=== PATIENT | male | born 1985 | race Caucasian/White ===

== ENCOUNTER 2018-09-21 13:40 | Emergency (ER) | payer BC, OTHER ==
--- NOTE | 2018-09-21 14:42 | EDM.PDOC ---
ED HPI GENERAL MEDICAL PROBLEM - General Chief Complaint: ENT Problem Stated Complaint: EAR Time Seen by Provider: 09/21/18 14:35 Source of Information: Reports: Patient History Limitations: Reports: No Limitations - History of Present Illness INITIAL COMMENTS - FREE TEXT/NARRATIVE: HISTORY AND PHYSICAL: History of present illness: Patient is a 33-year-old male who presents to the emergency room with complaints of left ear fullness. He states once a year he does gets large amount of wax which usually needs cleaned out. He comes today requesting evaluation and hopes having the ear irrigated. He denies any fever, chills, chest pain, shortness of breath or cough. Denies any GI or symptoms. He has been eating and drinking appropriately. Review of systems: As per history of present illness and below otherwise all systems reviewed and negative. Past medical history: As per history of present illness and as reviewed below otherwise noncontributory. Surgical history: As per history of present illness and as reviewed below otherwise noncontributory. Social history: See social history for further information Family history: As per history of present illness and as reviewed below otherwise noncontributory. Physical exam: General: well-developed and well-nourished 33-year-old male. Alert and oriented. Nontoxic appearing and in no acute distress. HEENT: Atraumatic, normocephalic, pupils equal and reactive bilaterally, negative for conjunctival pallor or scleral icterus, mucous membranes moist. Left TM is erythematous with white thick fluid noted behind the TM with dull light reflex, no bulging. Right TM normal.throat clear, neck supple, nontender, trachea midline. No drooling or trismus noted. No meningeal signs. No hot potato voice noted. Lungs: Clear to auscultation, breath sounds equal bilaterally, chest nontender. Heart: S1S2, regular rate and rhythm without overt murmur Abdomen: Soft, nondistended, nontender. Negative for masses or hepatosplenomegaly. Negative for costovertebral tenderness. Pelvis: Stable nontender. Genitourinary: Deferred. Rectal: Deferred. Skin: Intact, warm, dry. No lesions or rashes noted. Extremities: Atraumatic, negative for cords or calf pain. Neurovascular unremarkable. Neuro: Awake, alert, oriented. Cranial nerves II through XII unremarkable. Cerebellum unremarkable. Motor and sensory unremarkable throughout. Exam nonfocal. Notes: Will treat, supportive care measures were reviewed and discussed. Voices understanding and is agreeable to plan of care. Denies any further questions or concerns at this time. Diagnostics: None Therapeutics: None Prescription: Augmentin Impression: Otitis media with effusion, left Plan: 1. Take the antibiotic as prescribed. 2. May use [id number]-[id number] decongestants for the sensation of feeling full in the ear 3. Follow-up with ear nose and throat are primary care. Return to the ED as needed and as discussed. Definitive disposition and diagnosis as appropriate pending reevaluation and review of above. Left Ear Pain Score (Numeric/FACES): 4 - Related Data Allergies Allergy/AdvReac Type Severity Reaction Status Date / Time animal dander Allergy Airway Verified 09/21/18 14:13 Tightness cat dander Allergy Shortness Verified 09/21/18 14:13 of Breath Home Meds: Home Meds . [No Known Home Meds] 07/24/16 [History] Past Medical History - Past Health History Medical/Surgical History: Denies Medical/Surgical History HEENT History: Reports: None Cardiovascular History: Reports: Other (See Below) Other Cardiovascular History: myocarditis Respiratory History: Reports: Asthma Gastrointestinal History: Reports: None Genitourinary History: Reports: None Musculoskeletal History: Reports: None Neurological History: Reports: None Psychiatric History: Reports: None Endocrine/Metabolic History: Reports: None Hematologic History: Reports: None Immunologic History: Reports: None Oncologic (Cancer) History: Reports: None Dermatologic History: Reports: None - Infectious Disease History Infectious Disease History: Reports: None - Past Surgical History HEENT Surgical History: Reports: None Cardiovascular Surgical History: Reports: Other (See Below) Social & Family History - Family History Family Medical History: Noncontributory - Tobacco Use Smoking Status *Q: Current Every Day Smoker Years of Tobacco use: 10 Packs/Tins Daily: 0.1 - Caffeine Use Caffeine Use: Reports: Coffee, Energy Drinks - Recreational Drug Use Recreational Drug Use: No ED ROS ENT - Review of Systems Review Of Systems: ROS reveals no pertinent complaints other than HPI. ED EXAM, ENT - Physical Exam Exam: See Below (See dictation) Course - Vital Signs Last Recorded V/S: Last Vital Signs Temp 97.8 F 09/21/18 14:11 Pulse 78 09/21/18 14:11 Resp 16 09/21/18 14:11 BP 133/77 09/21/18 14:11 Pulse Ox 94 L 09/21/18 14:11 Departure - Departure Time of Disposition: 14:42 Disposition: Home, Self-Care 01 Clinical Impression: Otitis media Qualifiers: Otitis media type: suppurative Chronicity: acute Laterality: left Recurrence: non-recurrent Spontaneous tympanic membrane rupture: without spontaneous rupture Qualified Code(s): H66.002 - Acute suppurative otitis media without spontaneous rupture of ear drum, left ear - Discharge Information Instructions: Otitis Media, Adult Referrals: PCP,Unknown [Primary Care Provider] - Forms: ED Department Discharge Additional Instructions: The following information is given to patients seen in the emergency department who are being discharged to home. This information is to outline your options for follow-up care. We provide all patients seen in our emergency department with a follow-up referral. The need for follow-up, as well as the timing and circumstances, are variable depending upon the specifics of your emergency department visit. If you don't have a primary care physician on staff, we will provide you with a referral. We always advise you to contact your personal physician following an emergency department visit to inform them of the circumstance of the visit and for follow-up with them and/or the need for any referrals to a consulting specialist. The emergency department will also refer you to a specialist when appropriate. This referral assures that you have the opportunity for follow-up care with a specialist. All of these measure are taken in an effort to provide you with optimal care, which includes your follow-up. Under all circumstances we always encourage you to contact your private physician who remains a resource for coordinating your care. When calling for follow-up care, please make the office aware that this follow-up is from your recent emergency room visit. If for any reason you are refused follow-up, please contact the [facility] at and asked to speak to the emergency department charge nurse. [facility] [address] [place] [id number] [address] [facility] [address] [place] [address] 1. Take the antibiotic as prescribed. 2. May use hlzg-[id number] decongestants for the sensation of feeling full in the ear 3. Follow-up with ear nose and throat are primary care. Return to the ED as needed and as discussed.
[2018-09-21 15:24] VITALS: BP 144/92
== END 2018-09-21 15:24 | disposition home or self-care (01) ==
LOC: MW.ED 13:40
DX: H66.002 Acute suppurative otitis media without spontaneous rupture of ear drum, left ear (principal); F17.210 Nicotine dependence, cigarettes, uncomplicated
CPT/HCPCS: 99282

== ENCOUNTER 2018-10-03 12:57 | Emergency (ER) | payer BC ==
[2018-10-03 13:18] VITALS: BP 106/70
--- NOTE | 2018-10-03 13:40 | EDM.PDOC ---
ED HPI GENERAL MEDICAL PROBLEM - General Chief Complaint: ENT Problem Stated Complaint: EAR ACHE Time Seen by Provider: 10/03/18 13:00 Source of Information: Reports: Patient History Limitations: Reports: No Limitations - History of Present Illness INITIAL COMMENTS - FREE TEXT/NARRATIVE: History of present illness: []Patient gets ear infections see her this time year. He patient completed antibiotic and still has pain. He is unable to follow-up with any ENT or freezing but he is booked out past the summer. Review of systems: As per history of present illness and below otherwise all systems reviewed and negative. Past medical history: As per history of present illness and as reviewed below otherwise noncontributory. Surgical history: As per history of present illness and as reviewed below otherwise noncontributory. Social history: No reported history of drug or alcohol abuse. Family history: As per history of present illness and as reviewed below otherwise noncontributory. Physical exam: General: Well developed, well nourished in NAD HEENT: Atraumatic, normocephalic, pupils reactive, negative for conjunctival pallor or scleral icterus, mucous membranes moist, throat clear, neck supple, nontender, trachea midline., Cellular debris in left EAC unable to see TM clearly tubal perforation Lungs: Clear to auscultation, breath sounds equal bilaterally, chest nontender. Heart: S1S2, regular, negative for clicks, rubs, or JVD. Abdomen: NABS, Soft, nondistended, nontender. Negative for masses or hepatosplenomegaly. Negative for costovertebral tenderness. Pelvis: Stable nontender. Genitourinary: Deferred. Rectal: Deferred. Extremities: Atraumatic, negative for cords or calf pain. Neurovascular unremarkable. Neuro: Awake, alert, oriented. Cranial nerves II through XII unremarkable. Cerebellum unremarkable. Motor and sensory unremarkable throughout. Exam nonfocal. Skin:warm and dry Diagnostics: None Therapeutics: None ED Course: Stable Impression: otitis media, otitis externa Prescriptions: Cortisporin otic, Bactrim Plan: Take meds as directed, follow up with your primary care physician, return to ER if symptoms worsen or change. Definitive disposition and diagnosis as appropriate pending reevaluation and review of above. Left Ear Pain Score (Numeric/FACES): 5 - Related Data Allergies Allergy/AdvReac Type Severity Reaction Status Date / Time animal dander Allergy Airway Verified 10/03/18 13:15 Tightness cat dander Allergy Shortness Verified 10/03/18 13:15 of Breath Home Meds: Home Meds Hydrocort/Neomycin/Polymyxin B [Jjowpxrj-Zudvdgitw-WE Otic Susp] 10 ml .XX TID 10 Days #1 bottle 10/03/18 [Rx] Sulfamethoxazole/Trimethoprim [Bactrim Ds Tablet] 1 each PO BID #20 tablet 10/03 [Rx] Past Medical History - Past Health History Medical/Surgical History: Denies Medical/Surgical History HEENT History: Reports: None Cardiovascular History: Reports: Other (See Below) Other Cardiovascular History: myocarditis Respiratory History: Reports: Asthma Gastrointestinal History: Reports: None Genitourinary History: Reports: None Musculoskeletal History: Reports: None Neurological History: Reports: None Psychiatric History: Reports: None Endocrine/Metabolic History: Reports: None Hematologic History: Reports: None Immunologic History: Reports: None Oncologic (Cancer) History: Reports: None Dermatologic History: Reports: None - Infectious Disease History Infectious Disease History: Reports: None - Past Surgical History HEENT Surgical History: Reports: None Cardiovascular Surgical History: Reports: Other (See Below) Social & Family History - Family History Family Medical History: Noncontributory - Tobacco Use Smoking Status *Q: Never Smoker - Caffeine Use Caffeine Use: Reports: None - Recreational Drug Use Recreational Drug Use: No ED ROS ENT - Review of Systems Review Of Systems: ROS reveals no pertinent complaints other than HPI. ED EXAM, ENT - Physical Exam Exam: See Below Course - Vital Signs Last Recorded V/S: Last Vital Signs Temp 96.7 F 10/03/18 13:15 Pulse 70 10/03/18 13:15 Resp 15 10/03/18 13:15 BP 106/70 10/03/18 13:15 Pulse Ox 98 10/03/18 13:15 Departure - Departure Time of Disposition: 13:43 Disposition: Home, Self-Care 01 Condition: Good Clinical Impression: Otitis external Otitis media Qualifiers: Otitis media type: suppurative Chronicity: acute Laterality: left Recurrence: non-recurrent Spontaneous tympanic membrane rupture: without spontaneous rupture Qualified Code(s): H66.002 - Acute suppurative otitis media without spontaneous rupture of ear drum, left ear - Discharge Information *PRESCRIPTION DRUG MONITORING PROGRAM REVIEWED*: No *COPY OF PRESCRIPTION DRUG MONITORING REPORT IN PATIENT FANY: No Prescriptions: Hydrocort/Neomycin/Polymyxin B [Zcamdqyy-Qkanqviyo-OH Otic Susp] 10 ml .XX TID 10 Days #1 bottle Sulfamethoxazole/Trimethoprim [Bactrim Ds Tablet] 1 each PO BID #20 tablet Referrals: PCP,None [Primary Care Provider] - Forms: ED Department Discharge
== END 2018-10-03 13:59 | disposition home or self-care (01) ==
LOC: MW.ED 12:57
DX: H66.002 Acute suppurative otitis media without spontaneous rupture of ear drum, left ear (principal); H66.92 Otitis media, unspecified, left ear; Z91.048 Other nonmedicinal substance allergy status
CPT/HCPCS: 99282

== ENCOUNTER 2018-10-11 20:04 | Emergency (ER) | payer BC ==
[2018-10-11 20:29] VITALS: BP 144/87
--- NOTE | 2018-10-11 20:30 | EDM.PDOC ---
ED HPI GENERAL MEDICAL PROBLEM - General Chief Complaint: General Stated Complaint: PT HAS STOMACH PAIN Time Seen by Provider: 10/11/18 20:17 Source of Information: Reports: Patient History Limitations: Reports: No Limitations - History of Present Illness INITIAL COMMENTS - FREE TEXT/NARRATIVE: HISTORY AND PHYSICAL: History of present illness: Patient is a 33-year-old male presents to the ED today with concern of left- sided rib pain after a baseball game yesterday. Patient states as he was swinging the bat and felt a pop in his left side. Patient states since then he said 9 out of 10 rib pain. Patient states he's been taking ibuprofen and Tylenol [id number] with minimal relief of symptoms. Patient denies any prior injury to this area. Patient denies fever, chills, chest pain, shortness of breath, or cough. Denies headache, neck stiff ness, change in vision, syncope, or near syncope. Denies nausea, vomiting, abdominal pain, diarrhea, constipation, or dysuria. Has not noted any blood in urine or stool. Patient has been eating and drinking appropriately. Review of systems: As per history of present illness and below otherwise all systems reviewed and negative. Past medical history: As per history of present illness and as reviewed below otherwise noncontributory. Surgical history: As per history of present illness and as reviewed below otherwise noncontributory. Social history: See social history for further information Family history: As per history of present illness and as reviewed below otherwise noncontributory. Physical exam: General: Patient is alert, oriented, and in no acute distress. Patient sitting comfortably on exam table. HEENT: Atraumatic, normocephalic, pupils equal and reactive bilaterally, negative for conjunctival pallor or scleral icterus, mucous membranes moist, TMs normal bilaterally, throat clear, neck supple, nontender, trachea midline. No drooling or trismus noted. No meningeal signs. No hot potato voice noted. Lungs: Clear to auscultation, breath sounds equal bilaterally, chest nontender. Heart: S1S2, regular rate and rhythm without overt murmur Abdomen: Soft, nondistended, nontender. Negative for masses or hepatosplenomegaly. Negative for costovertebral tenderness. Pelvis: Stable nontender. Genitourinary: Deferred. Rectal: Deferred. Skin: Intact, warm, dry. No lesions or rashes noted. Extremities/musculoskeletal: Negative for cords or calf pain. Neurovascular unremarkable. Patient does have pain to palpation of ribs 9 and 10 on the left side. No obvious deformities, step-offs, or crepitus. Neuro: Awake, alert, oriented. Cranial nerves II through XII unremarkable. Cerebellum unremarkable. Motor and sensory unremarkable throughout. Exam nonfocal. Notes: Discussed the importance for follow-up with the primary care provider. Voices understanding and is agreeable to plan of care. Denies any further questions or concerns at this time. Diagnostics: Left rib x-ray with chest x-ray, UA Therapeutics: Toradol, Norflex Prescription: Diclofenac, Flexeril Impression: Musculoskeletal pain Plan: 1. Take medication as prescribed. You can also alternate ibuprofen and Tylenol as directed for pain and discomfort. 2. Follow-up with your primary care provider as discussed. 3. Return to the ED as needed and as discussed. Definitive disposition and diagnosis as appropriate pending reevaluation and review of above. left rib Pain Score (Numeric/FACES): 5 - Related Data Allergies Allergy/AdvReac Type Severity Reaction Status Date / Time animal dander Allergy Airway Verified 10/11/18 20:23 Tightness cat dander Allergy Shortness Verified 10/11/18 20:23 of Breath Home Meds: Home Meds . [No Known Home Meds] 10/11/18 [History] Past Medical History - Past Health History Medical/Surgical History: Denies Medical/Surgical History HEENT History: Reports: None Cardiovascular History: Reports: Other (See Below) Other Cardiovascular History: myocarditis Respiratory History: Reports: Asthma Gastrointestinal History: Reports: None Genitourinary History: Reports: None Musculoskeletal History: Reports: None Neurological History: Reports: None Psychiatric History: Reports: None Endocrine/Metabolic History: Reports: None Hematologic History: Reports: None Immunologic History: Reports: None Oncologic (Cancer) History: Reports: None Dermatologic History: Reports: None - Infectious Disease History Infectious Disease History: Reports: None - Past Surgical History HEENT Surgical History: Reports: None Cardiovascular Surgical History: Reports: Other (See Below) Social & Family History - Family History Family Medical History: Noncontributory - Caffeine Use Caffeine Use: Reports: None ED ROS GENERAL - Review of Systems Review Of Systems: ROS reveals no pertinent complaints other than HPI. ED EXAM, GENERAL - Physical Exam Exam: See Below (See dictation) Course - Vital Signs Last Recorded V/S: Last Vital Signs Temp 35.8 C 10/11/18 20:24 Pulse 76 10/11/18 20:24 Resp 18 10/11/18 20:24 BP 144/87 H 10/11/18 20:24 Pulse Ox 98 10/11/18 20:24 - Orders/Labs/Meds Labs: Laboratory Tests 10/11/18 Range/Units 20:59 Urine Color YELLOW Urine Appearance CLEAR Urine pH 6.0 (5.0-8.0) Ur Specific [place] 1.020 (1.001-1.035) Urine Protein NEGATIVE (NEGATIVE) mg/dL Urine Glucose (UA) NEGATIVE (NEGATIVE) mg/dL Urine Ketones NEGATIVE (NEGATIVE) mg/dL Urine Occult Blood NEGATIVE (NEGATIVE) Urine Nitrite NEGATIVE (NEGATIVE) Urine Bilirubin NEGATIVE (NEGATIVE) Urine Urobilinogen 0.2 (<2.0) EU/dL Ur Leukocyte Esterase NEGATIVE (NEGATIVE) Meds: Medications Discontinued Medications Generic Name Dose Route Start Last Admin Trade Name Kerline PRN Reason Stop Dose Admin Ketorolac Tromethamine 60 mg 10/11/18 20:42 10/11/18 20:51 Toradol IM 10/11/18 20:43 60 mg ONETIME ONE Administration Orphenadrine Citrate 60 mg 10/11/18 20:42 10/11/18 20:51 Norflex IM 10/11/18 20:43 60 mg NOW STA Administration Departure - Departure Time of Disposition: 21:38 Disposition: Home, Self-Care 01 Clinical Impression: Musculoskeletal pain - Discharge Information Referrals: Yolanda Majano NP [Primary Care Provider] - Forms: ED Department Discharge Additional Instructions: The following information is given to patients seen in the emergency department who are being discharged to home. This information is to outline your options for follow-up care. We provide all patients seen in our emergency department with a follow-up referral. The need for follow-up, as well as the timing and circumstances, are variable depending upon the specifics of your emergency department visit. If you don't have a primary care physician on staff, we will provide you with a referral. We always advise you to contact your personal physician following an emergency department visit to inform them of the circumstance of the visit and for follow-up with them and/or the need for any referrals to a consulting specialist. The emergency department will also refer you to a specialist when appropriate. This referral assures that you have the opportunity for follow-up care with a specialist. All of these measure are taken in an effort to provide you with optimal care, which includes your follow-up. Under all circumstances we always encourage you to contact your private physician who remains a resource for coordinating your care. When calling for follow-up care, please make the office aware that this follow-up is from your recent emergency room visit. If for any reason you are refused follow-up, please contact the [facility] Emergency Department at and asked to speak to the emergency department charge nurse. [facility] [address] [place] [address] [id number] [address] [address] 1. Take medication as prescribed. You can also alternate ibuprofen and Tylenol as directed for pain and discomfort. 2. Follow-up with your primary care provider as discussed. 3. Return to the ED as needed and as discussed.
[2018-10-11] MEDS ORDERED: Ketorolac 60 MG/2 ML SDV IM ONE (20:42)
--- NOTE | 2018-10-11 21:34 | CR ---
INDICATION: Pain. TECHNIQUE: PA chest and 2 left ribs. FINDINGS: The lungs are clear. There is no evidence of pulmonary contusion, pneumothorax or pleural effusion. The heart and pulmonary vessels are of normal size. Oblique detail views of the ribs demonstrate no evidence of fracture or intrinsic bone lesion. There is no evidence of pleural hematoma. IMPRESSION: Negative chest and left ribs. Dictated by Jose D Nguyen MD @ Oct 11 2018 9:31PM Signed by Dr. Jose D Nguyen @ Oct 11 2018 9:33PM
== END 2018-10-11 21:50 | disposition home or self-care (01) ==
LOC: MW.ED 20:04
DX: R07.81 Pleurodynia (principal); Z91.048 Other nonmedicinal substance allergy status
CPT/HCPCS: 71101; 81003; 96372; 99283; J1885; J2360

== ENCOUNTER 2019-12-31 05:25 | Emergency (ER) | payer BC ==
--- NOTE | 2019-12-31 05:40 | EDM.PDOC ---
<Chsa Chavez - Last Filed: 12/31/19 08:54> ED HPI GENERAL MEDICAL PROBLEM - General Chief Complaint: General Stated Complaint: SEVERE NECK PAIN Time Seen by Provider: 12/31/19 05:39 - Related Data Allergies Allergy/AdvReac Type Severity Reaction Status Date / Time animal dander Allergy Airway Verified 12/31/19 05:33 Tightness cat dander Allergy Shortness Verified 12/31/19 05:33 of Breath Home Meds: Home Meds Cyclobenzaprine HCl [Cyclobenzaprine HCl ER] 30 mg PO TID #9 cap.er.24h 12/31/19 [Rx] ED ROS GENERAL - Review of Systems Review Of Systems: Comprehensive ROS is negative, except as noted in HPI. Course - Re-Assessments/Exams Free Text/Narrative Re-Assessment/Exam: 12/31/19 08:55 After IV toradol, he feels much improved and is stable for discharge. I performed a repeat examination and the patient has not demonstrated any new abnormal findings. Patient exhibits normal vital signs. I advised the patient to return to the ER for reevaluation if symptoms worsened, and to follow up with their PCP within 2-3 days. MEDICAL DECISION MAKING: I reviewed the patients past medical records, lab and radiographic findings. I discussed the case with the patient. My differential diagnosis included: dissection, neck strain. CT angios neck did not reveal any signs of dissection or aneurysm or hematoma. His symptoms improved after IV Toradol, I believe he is stable for discharge at this time. Departure - Departure Time of Disposition: 08:58 Disposition: Home, Self-Care 01 Condition: Good Clinical Impression: Neck strain - Discharge Information *PRESCRIPTION DRUG MONITORING PROGRAM REVIEWED*: Not Applicable *COPY OF PRESCRIPTION DRUG MONITORING REPORT IN PATIENT FANY: Not Applicable Prescriptions: Cyclobenzaprine HCl [Cyclobenzaprine HCl ER] 30 mg PO TID #9 cap.er.24h Instructions: Muscle Strain Referrals: Yolanda Majano NP [Primary Care Provider] - 3 Days Forms: ED Department Discharge Additional Instructions: The following information is given to patients seen in the emergency department who are being discharged to home. This information is to outline your options for follow-up care. We provide all patients seen in our emergency department with a follow-up referral. The need for follow-up, as well as the timing and circumstances, are variable depending upon the specifics of your emergency department visit. If you don't have a primary care physician on staff, we will provide you with a referral. We always advise you to contact your personal physician following an emergency department visit to inform them of the circumstance of the visit and for follow-up with them and/or the need for any referrals to a consulting specialist. The emergency department will also refer you to a specialist when appropriate. This referral assures that you have the opportunity for follow-up care with a specialist. All of these measure are taken in an effort to provide you with optimal care, which includes your follow-up. Under all circumstances we always encourage you to contact your private physician who remains a resource for coordinating your care. When calling for follow-up care, please make the office aware that this follow-up is from your recent emergency room visit. If for any reason you are refused follow-up, please contact the [facility] Emergency Department at and asked to speak to the emergency department charge nurse. If you do not have a primary care doctor, please follow up with the clinics below within 3-5 days. [facility] - Primary Care [address] [place] [id number] [place] [address] <Jose Bauman - Last Filed: 12/31/19 19:15> ED HPI GENERAL MEDICAL PROBLEM - General Source of Information: Reports: Patient History Limitations: Reports: No Limitations - History of Present Illness INITIAL COMMENTS - FREE TEXT/NARRATIVE: 34-year-old male past medical history of asthma presenting with neck pain. Patient states that 3 days ago, he woke up with severe pain to the left posterolateral neck. There is no history of preceding trauma, heavy lifting, strenuous exercise, etc. No history of preceding chiropractic manipulation. Since the onset of the pain, he went to chiropractic clinic twice to see if manipulation would improve the pain but it has not so far. Denies any visual disturbance, facial or extremity numbness or weakness, dysarthria, dysphasia, vision changes, facial droop, gait instability, or any other concerning neurologic symptoms. No history of prior severe neck pain like this. No self treatment prior to arrival. neck Pain Score (Numeric/FACES): 10 Past Medical History - Past Health History Medical/Surgical History: Denies Medical/Surgical History HEENT History: Reports: None Other HEENT History: wears glasses Cardiovascular History: Reports: Other (See Below) Other Cardiovascular History: myocarditis Respiratory History: Reports: Asthma Gastrointestinal History: Reports: None Genitourinary History: Reports: None Musculoskeletal History: Reports: None Neurological History: Reports: None Psychiatric History: Reports: None Endocrine/Metabolic History: Reports: None Hematologic History: Reports: None Immunologic History: Reports: None Oncologic (Cancer) History: Reports: None Dermatologic History: Reports: None - Infectious Disease History Infectious Disease History: Reports: Chicken Pox - Past Surgical History HEENT Surgical History: Reports: None Cardiovascular Surgical History: Reports: Other (See Below) Social & Family History - Family History Family Medical History: Noncontributory - Tobacco Use Smoking Status *Q: Former Smoker Used Tobacco, but Quit: Yes Month/Year Tobacco Last Used: 2019 - Caffeine Use Caffeine Use: Reports: Coffee - Recreational Drug Use Recreational Drug Use: No ED ROS GENERAL - Review of Systems Review Of Systems: See Below Constitutional: Denies: Fever HEENT: Denies: Vertigo, Vision Change Respiratory: Denies: Shortness of Breath Cardiovascular: Denies: Chest Pain Endocrine: Reports: No Symptoms GI/Abdominal: Denies: Nausea, Vomiting : Reports: No Symptoms Musculoskeletal: Reports: Neck Pain Skin: Denies: Rash, Lesions Neurological: Denies: Dizziness, Headache, Numbness, Paresthesia, Pre-Existing Deficit, Tingling, Trouble Speaking, Difficulty Walking, Weakness, Change in Speech, Gait Disturbance Psychiatric: Reports: No Symptoms Hematologic/Lymphatic: Reports: No Symptoms Immunologic: Reports: No Symptoms ED EXAM, GENERAL - Physical Exam Exam: See Below Free Text/Narrative:: Vital signs reviewed. Nursing notes reviewed. Constitutional: Awake, alert, non-distressed. Head: Normocephalic, atraumatic. Neck: Moderate tenderness to palpation to the left posterolateral neck, no midline tenderness, moving the neck limited due to pain Eyes: EOMI, conjunctiva normal, no discharge, no scleral icterus. Pupils 3 mm bilaterally Ears, Nose, Throat: External ears and nose normal, moist oral mucosa. Cardiovascular: 2+ radial pulse, capillary refill less than 2 seconds. Pulmonary: normal work of breathing, no accessory muscle use. Abdomen/GI: Nondistended Musculoskeletal: No deformities. Integumentary: Appropriate color for ethnicity, warm, dry, no pallor or jaundice, no rash. Neurologic: Awake, alert, and oriented x3. Cranial nerves II through XII intact. No facial droop or dysarthria. Neck range of motion limited due to pain. No pronator drift. Normal [id number] and [id number]-[id number]. No dysdiadochokinesia. 5/5 strength in all extremities. Sensation intact to light touch x4. Normal gait. Normal visual quintana, no field cuts. Able to sit, stand, and ambulate without assistance. Psychiatric: Appropriate mood and affect, normal thought process. Course - Vital Signs Text/Narrative:: Patient hemodynamically stable, afebrile, well-appearing, looks nontoxic. Differential diagnosis includes but is not limited to: Strain/sprain, muscle spasm, cervical arterial dissection or injury, cervical spine injury, trapezius muscle spasm, epidural abscess, cervical disc herniation, etc. Neurologically intact. Given acetaminophen, ibuprofen, IV fentanyl, and a lidocaine patch for pain. Given atraumatic onset of the pain and location, there is some concern for cervical arterial dissection. The patient will have a CT angiogram of the neck and this is pending at time of shift change. Signed out to my colleague awaiting CT results, likely discharge home if negative. Last Recorded V/S: Last Vital Signs Temp 36.9 C 12/31/19 09:32 Pulse 94 12/31/19 09:32 Resp 17 12/31/19 09:32 BP 132/64 12/31/19 09:32 Pulse Ox 94 L 12/31/19 09:32 - Orders/Labs/Meds Orders: Active Orders 24 hr Category Date Time Status Pulse Oximetry [RC] ASDIRECTED Care 12/31/19 05:51 Active Saline Lock Insert [OM.PC] Stat Oth 12/31/19 05:52 Ordered Labs: Laboratory Tests 12/31/19 12/31/19 Range/Units 05:58 05:58 WBC 9.10 (4.0-11.0) K/uL RBC 5.25 (4.50-5.90) M/uL Hgb 16.7 (13.0-17.0) g/dL Hct 46.4 (38.0-50.0) % MCV 88.4 (80.0-98.0) fL MCH 31.8 (27.0-32.0) pg MCHC 36.0 (31.0-37.0) g/dL RDW Std Deviation 40.4 (28.0-62.0) fl RDW Coeff of Cinda 13 (11.0-15.0) % Plt Count 203 (150-400) K/uL MPV 11.10 (7.40-12.00) fL Neut % (Auto) 45.6 L (48.0-80.0) % Lymph % (Auto) 42.4 H (16.0-40.0) % Maury % (Auto) 9.2 (0.0-15.0) % Eos % (Auto) 2.5 (0.0-7.0) % Baso % (Auto) 0.3 (0.0-1.5) % Neut # (Auto) 4.1 (1.4-5.7) K/uL Lymph # (Auto) 3.9 H (0.6-2.4) K/uL Maury # (Auto) 0.8 (0.0-0.8) K/uL Eos # (Auto) 0.2 (0.0-0.7) K/uL Baso # (Auto) 0.0 (0.0-0.1) K/uL Nucleated RBC % 0.0 /100WBC Nucleated RBCs # 0 K/uL Sodium 136 (136-148) mmol/L Potassium 4.3 (3.5-5.1) mmol/L Chloride 101 (98-107) mmol/L Carbon Dioxide 24.7 (21.0-32.0) mmol/L BUN 17 (7.0-18.0) mg/dL Creatinine 1.0 (0.8-1.3) mg/dL Est Cr Clr Drug Dosing 98.23 mL/min Estimated GFR (MDRD) > 60.0 ml/min Glucose 101 (74-106) mg/dL Calcium 10.2 H (8.5-10.1) mg/dL Meds: Medications Discontinued Medications Generic Name Dose Route Start Last Admin Trade Name Freq PRN Reason Stop Dose Admin Acetaminophen 1,000 mg 12/31/19 05:51 12/31/19 06:09 Tylenol Extra Strength PO 12/31/19 05:52 1,000 mg ONETIME ONE Administration Bupivacaine HCl 10 ml 12/31/19 06:43 12/31/19 07:38 Sensorcaine-Mpf 0.5% INJECT 12/31/19 06:44 Not Given ONETIME ONE Fentanyl 100 mcg 12/31/19 05:51 12/31/19 06:08 Fentanyl IVPUSH 12/31/19 05:52 100 mcg ONETIME ONE Administration Ibuprofen 400 mg 12/31/19 05:59 12/31/19 06:08 Motrin PO 12/31/19 06:00 400 mg ONETIME ONE Administration Iopamidol 100 ml 12/31/19 06:47 12/31/19 06:47 Isovue-370 (76%) IVPUSH 12/31/19 06:48 100 ml ONETIME ONE Administration Ketorolac Tromethamine 30 mg 12/31/19 07:52 12/31/19 08:07 Toradol IVPUSH 12/31/19 07:53 30 mg ONETIME ONE Administration Lidocaine 700 mg 12/31/19 05:53 12/31/19 06:08 Lidoderm 5% TOP 12/31/19 05:54 700 mg ONETIME ONE Administration Sodium Chloride 10 ml 12/31/19 05:51 Saline Flush FLUSH ASDIRECTED PRN Keep Vein Open Sodium Chloride 2.5 ml 12/31/19 05:51 Saline Flush FLUSH ASDIRECTED PRN Keep Vein Open Sepsis Event Note (ED) - Evaluation Sepsis Screening Result: No Definite Risk - Focused Exam Vital Signs: Vital Signs Temp Pulse Resp BP Pulse Ox 12/31/19 09:32 36.9 C 94 17 132/64 94 L - My Orders Last 24 Hours: My Active Orders 12/31/19 05:51 Pulse Oximetry [RC] ASDIRECTED 12/31/19 05:52 Saline Lock Insert [OM.PC] Stat - Assessment/Plan Last 24 Hours: My Active Orders 12/31/19 05:51 Pulse Oximetry [RC] ASDIRECTED 12/31/19 05:52 Saline Lock Insert [OM.PC] Stat
[2019-12-31] MEDS ORDERED: fentaNYL 50 MCG/ML SDV IVPUSH ONE (05:51)
[2019-12-31] MEDS ORDERED: Sodium Chloride 0.9% 2.5 ML Syringe FLUSH PRN (05:51)
[2019-12-31] MEDS ORDERED: Acetaminophen 500 MG Tab PO ONE (05:51)
[2019-12-31] MEDS ORDERED: Sodium Chloride 0.9% 10 ML Syringe FLUSH PRN (05:51)
[2019-12-31] MEDS ORDERED: Lidocaine 5% 700 MG Patch TOP ONE (05:53)
[2019-12-31] MEDS ORDERED: Ibuprofen 400 MG Tab PO ONE (05:59)
[2019-12-31 06:21] LABS: BLOOD UREA NITROGEN,BUN 17 mg/dL (7.0-18.0); CARBON DIOXIDE,CO2 24.7 mmol/L (21.0-32.0); CHLORIDE,CL 101 mmol/L (98-107); GLUCOSE RANDOM 101 mg/dL (74-106); POTASSIUM,K 4.3 mmol/L (3.5-5.1); SODIUM,NA 136 mmol/L (136-148)
[2019-12-31] MEDS ORDERED: Bupivacaine 0.5% 10 ML SDV INJECT ONE (06:43)
[2019-12-31] MEDS ORDERED: Iopamidol 755 Mg/ML 100 ML Bottle IVPUSH ONE (06:47)
--- NOTE | 2019-12-31 07:51 | CT ---
INDICATION: Severe left-sided neck pain, clinical concern for cervical arterial dissection. TECHNIQUE: High resolution axial CT images acquired through the neck following rapid intravenous administration of iodinated contrast. Multiplanar MIPS of cervical vasculature performed. COMPARISON: None. FINDINGS: Carotid arteries: There is a small amount of soft atherosclerotic plaque at the origin of the left internal carotid artery without stenosis. There is no evidence for dissection. Vertebral arteries: There is no stenosis. There is no evidence for dissection. The soft tissues of the neck are within normal limits. The cervical spine is in normal alignment. The lung apices are clear. IMPRESSION: No evidence for carotid or vertebral artery dissection to correlate with the given history. Gonzales Dale MD Neurointerventional Radiologist [facility] Please note that all CT scans at this facility use dose modulation, iterative reconstruction, and/or weight-based dosing when appropriate to reduce radiation dose to as low as reasonably achievable. Dictated by Gonzales Dale MD @ Dec 31 2019 11:10AM Signed by Dr. Gonzales Dale @ Dec 31 2019 11:14AM
[2019-12-31] MEDS ORDERED: Ketorolac 30 MG/ML SDV IVPUSH ONE (07:52)
[2019-12-31 11:42] VITALS: BP 132/64; PULSE 94
== END 2019-12-31 09:32 | disposition home or self-care (01) ==
LOC: MW.ED 05:25
DX: S16.1XXA Strain of muscle, fascia and tendon at neck level, initial encounter (principal); J45.909 Unspecified asthma, uncomplicated; Z91.09 Other allergy status, other than to drugs and biological substances; X58.XXXA Exposure to other specified factors, initial encounter; Z87.891 Personal history of nicotine dependence
CPT/HCPCS: 36415; 70498; 80048; 85025; 96374; 96375; 99284; A9270; J1885; J3010; Q9967; 99283

== ENCOUNTER 2022-04-23 05:08 | Emergency (ER) | payer BC ==
[2022-04-23] MEDS ORDERED: Albuterol 8 GM Inhaler INH STA (06:03)
[2022-04-23 06:06] LABS: CORONAVIRUS COVID-19 NAA NEGATIVE (NEGATIVE); INFLUENZA A NAA NEGATIVE (NEGATIVE); INFLUENZA B NAA NEGATIVE (NEGATIVE)
[2022-04-23] MEDS ORDERED: predniSONE 20 MG Tab PO ONE (06:37)
[2022-04-23 07:00] VITALS: BP 135/86; PULSE 102
== END 2022-04-23 06:53 | disposition home or self-care (01) ==
LOC: MW.ED 05:08
DX: J20.9 Acute bronchitis, unspecified (principal); Z91.09 Other allergy status, other than to drugs and biological substances; Z20.822 Contact with and (suspected) exposure to COVID-19
CPT/HCPCS: 0240U; 71045; 87651; 99283; A9270

== ENCOUNTER 2024-07-09 16:31 | Emergency (ER) | payer BC | END 2024-07-09 17:30 | disposition left against medical advice (07) | LOC: MW.ED 16:31 | DX: Z53.21 Procedure and treatment not carried out due to patient leaving prior to being seen by health care provider (principal) ==

== ENCOUNTER 2024-09-19 14:42 | Emergency (ER) | payer BC ==
[2024-09-19 15:42] VITALS: BP 141/85; PULSE 78
== END 2024-09-19 16:17 | disposition left against medical advice (07) ==
LOC: MW.ED 14:42
DX: Z53.21 Procedure and treatment not carried out due to patient leaving prior to being seen by health care provider (principal)